=== PATIENT | female | born 2000 | race Two or more races ===

== ENCOUNTER 2024-05-23 07:50 | Emergency (ER) | payer OTHER ==
[2024-05-23 07:56] VITALS: BP 123/79; PULSE 85; RESP 18; TEMP 98.2; BMI 22.1
[2024-05-23] MEDS ORDERED: ACETAMINOPHEN 325 MG TABLET (FP) PO ONE (10:01)
[2024-05-23] MEDS ORDERED: ACETAMINOPHEN 325 MG TABLET (FP) ONE (10:04)
[2024-05-23 14:25] LABS: HIV INTERPRETATION NEGATIVE (NEGATIVE)
== END 2024-05-23 10:13 | disposition home or self-care (01) ==
LOC: JER 07:50
PROC: 0XQLXZZ Repair Right Thumb, External Approach (ICD-10-PCS; principal; 2024-05-23)
DX: S61.011A Laceration without foreign body of right thumb without damage to nail, initial encounter (principal); W25.XXXA Contact with sharp glass, initial encounter
CPT/HCPCS: 12001; 36415; 86803; 87389; 99283-25

== ENCOUNTER 2025-04-19 19:37 | Emergency (ER) | payer OTHER ==
[2025-04-19 19:43] VITALS: BP 140/80; PULSE 81; RESP 20; TEMP 97.5; BMI 21.6
[2025-04-19] MEDS ORDERED: PANTOPRAZOLE 20 MG TABLET PO ONE (20:11)
[2025-04-19] MEDS: PANTOPRAZOLE 40 MG TABLET PO ONE (20:12)
[2025-04-19 20:16] LABS: MCHC 33.1 g/dl (32.2-35.5); MEAN CELL VOLUME 83.7 fl (79.4-94.8); MEAN PLT VOLUME 9.5 fl (9.4-12.3); RDW 14.9 % (12.1-16.5)
[2025-04-19 20:41] LABS: GLUCOSE,RANDOM 81.0 mg/dL (74-106); TOT PROT 8.1 g/dl (6.4-8.2)
[2025-04-19 20:43] LABS: CO2 25.0 mmol/L (21-32)
[2025-04-19 20:44] LABS: ALK PHOS 65.0 U/L (40-150)
[2025-04-19 20:47] LABS: CREATININE 0.78 mg/dL (0.55-1.3); SGOT/AST 23.0 U/L (5-34); SGPT/ALT 38.0 U/L (0-55)
[2025-04-19 21:09] LABS: HCV DIAGNOSTIC IN-HOUSE W/RFLX NON-REACTIVE (NONREACTIVE); HIV INTERPRETATION NEGATIVE (NEGATIVE)
== END 2025-04-19 21:23 | disposition home or self-care (01) ==
LOC: JER 19:37
DX: R10.11 Right upper quadrant pain (principal); R10.13 Epigastric pain
CPT/HCPCS: 36415; 76705-TC; 80053; 83690; 84703; 85025; 86803; 87389; 99284-25